=== PATIENT | female | born 1970 | race Caucasian/White ===

== ENCOUNTER 2021-02-07 07:24 | Day surgery (SDC) | payer BC, MEDICAID ==
--- NOTE | 2021-02-06 12:24 | PCM.PREANE ---
Preanesthetic Assessment - Procedure Proposed Procedure: EGD and Colonoscopy - Anesthesia/Transfusion/Family Hx Anesthesia History: Prior Anesthesia Reaction (PONV-scopalamine patch behind right ear at 0734) Family History of Anesthesia Reaction: No Transfusion History: No Prior Transfusion(s) Intubation History: Unknown - Review of Systems General: No Symptoms Pulmonary: No Symptoms (Snoring/), Shortness of Breath, Cough Cardiovascular: No Symptoms (epigastric pain,HTN, elevated lipids), Dyspnea on Exertion Gastrointestinal: No Symptoms (GERD, hiatal hernia), Difficulty Swallowing Neurological: No Symptoms (chronic lower back pain) Other: Reports: Liver Problems (history of fatty liver), Depression, Anxiety - Physical Assessment NPO Status Date: 02/06/21 NPO Status Time: 22:00 Vital Signs: HR:76 Sat: 93% Temp: 98.8 Resp: 20 B/P: 135/71 Height: 1.55 m Weight: 109 kg ASA Class: 3 Mental Status: Alert & Oriented x3 Airway Class: Mallampati = 3 Dentition: Reports: Normal Dentition, Caries Thyro-Mental Finger Breadths: 3 Mouth Opening Finger Breadths: 3 ROM/Head Extension: Full Lungs: Clear to Auscultation, Normal Respiratory Effort Cardiovascular: Regular Rate, Regular Rhythm, No Murmurs - Lab Values: All labs reviewed and noted and within acceptable ranges to proceed with scheduled procedure. - Imaging/EKG Impressions: Echocardiogram: EF: 60-65%(history of tricuspid/mitral valve regurgitation 1997) EKG: SR rate=77, borderline T wave abnormalities, anterior leads - Allergies Allergies/Adverse Reactions: Allergies Allergy/AdvReac Type Severity Reaction Status Date / Time No Known Allergies Allergy Verified 02/06/21 14:24 - Anesthesia Plan Pre-Op Medication Ordered: Beta Manuela Beta Manuela: Metoprolol Med Last Dose Date: 02/07/21 Med Last Dose Time: 21:00 - Acknowledgements Anesthesia Type Planned: MAC Pt an Appropriate Candidate for the Planned Anesthesia: Yes Alternatives and Risks of Anesthesia Discussed w Pt/Guardian: Yes Pt/Guardian Understands and Agrees with Anesthesia Plan: Yes PreAnesthesia Questionnaire Cardiovascular History: Reports: Hypertension Respiratory History: Reports: Asthma Gastrointestinal History: Reports: Hiatal Hernia, Other (See Below) Other Gastrointestinal History: fatty liver Genitourinary History: Reports: Renal Calculus Musculoskeletal History: Reports: Other (See Below) Other Musculoskeletal History: left foot surgery- pins Other Dermatologic History: excema - Past Surgical History Musculoskeletal Surgical History: Reports: Shoulder Surgery, Other (See Below) Other Musculoskeletal Surgeries/Procedures:: degenerative arthritis - HOME MEDS Home Medications: Home Meds Albuterol Sulfate [Albuterol Sulfate HFA] 2 puff INH Q4H PRN 12/01/14 [History] DULoxetine [Cymbalta] 120 mg PO DAILY 07/07/18 [History] Albuterol Sulfate [Albuterol Sulfate HFA] 1 dose INH Q4H PRN 02/06/21 [History] Celecoxib 200 mg PO DAILY 02/06/21 [History] Fluocinonide [Lidex 0.05% Gel] 1 dose TOP ASDIRECTED PRN 02/06/21 [History] LORazepam [Ativan] 1 mg PO BEDTIME 02/06/21 [History] Mometasone/Formoterol [Dulera 200-5 MCG] 2 puff INH BID 02/06/21 [History] Phentermine HCl 37.5 mg PO DAILY 02/06/21 [History] Potassium Chloride 20 meq PO DAILY 02/06/21 [History] Rosuvastatin Calcium 20 mg PO DAILY 02/06/21 [History] buPROPion HCL [Wellbutrin Xl] 150 mg PO DAILY 02/06/21 [History] - CURRENT (IN HOUSE) MEDS Current Meds: Current Medications Lactated Ringer's (Ringers, Lactated) 1,000 mls @ 125 mls/hr IV ASDIRECTED ROSA Stop: 02/07/21 23:00 Lidocaine/Sodium Bicarbonate (Lidocaine 1%/Sod Bicarbonate In Ns 8.4% 1 Ml Syringe) 0.25 ml IDERM ONETIME PRN PRN Reason: Prior to IV Start Stop: 02/07/21 18:00 Sodium Chloride (Sodium Chloride 0.9% 10 Ml Syringe) 10 ml FLUSH ASDIRECTED PRN PRN Reason: Keep Vein Open Stop: 02/07/21 18:00 Discontinued Medications Lactated Ringer's (Ringers, Lactated) 1,000 mls @ 125 mls/hr IV ASDIRECTED ROSA Stop: 12/20/20 23:00 Lactated Ringer's (Ringers, Lactated) 1,000 mls @ 125 mls/hr IV ASDIRECTED ROSA Stop: 01/03/21 23:00 Lidocaine/Sodium Bicarbonate (Lidocaine 1%/Sod Bicarbonate In Ns 8.4% 1 Ml Syringe) 0.25 ml IDERM ONETIME PRN PRN Reason: Prior to IV Start Stop: 12/20/20 18:00 Lidocaine/Sodium Bicarbonate (Lidocaine 1%/Sod Bicarbonate In Ns 8.4% 1 Ml Syringe) 0.25 ml IDERM ONETIME PRN PRN Reason: Prior to IV Start Stop: 01/03/21 18:00 Sodium Chloride (Sodium Chloride 0.9% 10 Ml Syringe) 10 ml FLUSH ASDIRECTED PRN PRN Reason: Keep Vein Open Stop: 12/20/20 18:00 Sodium Chloride (Sodium Chloride 0.9% 10 Ml Syringe) 10 ml FLUSH ASDIRECTED PRN PRN Reason: Keep Vein Open Stop: 01/03/21 18:00
[~2021-02-07 07:24] MED LIST: Albuterol 0.083% 2.5 MG/3 ML Neb Soln NEB PRN; Lactated Ringers 1,000 ML IV SCH; Lidocaine 1%/Sod Bicarbonate in NS 8.4% 1 ML Syringe IDERM PRN; Scopolamine 1.5 MG Transdermal Patch TRDERM PRN; Sodium Chloride 0.9% 10 ML Syringe FLUSH PRN
[2021-02-07] MEDS ORDERED: Lactated Ringers 1,000 ML ONE (08:39)
[2021-02-07] MEDS ORDERED: Propofol 200 MG/20 ML SDV ONE ×2 (08:39→08:53)
[2021-02-07] MEDS ORDERED: Lidocaine 1% 4 ML ONE (08:39)
[2021-02-07] MEDS ORDERED: fentaNYL 100 MCG/2 ML SDV ONE (08:39)
--- NOTE | 2021-02-07 09:19 | PCM48HPAN ---
Post Anesthesia Note - EVALUATION WITHIN 48HRS OF ANESTHETIC Vital Signs in Normal Range: Yes Patient Participated in Evaluation: Yes Respiratory Function Stable: Yes Airway Patent: Yes Cardiovascular Function Stable: Yes Hydration Status Stable: Yes Pain Control Satisfactory: Yes Nausea and Vomiting Control Satisfactory: Yes Mental Status Recovered: Yes Vital Signs: Last Vital Signs Temp 98.6 02/07/21 0915 Pulse 84 02/07/21 0915 Resp 12 02/07/21 0915 BP 96/62 02/07/21 0915 Pulse Ox 93% 02/07/21 0915
--- NOTE | 2021-02-07 09:21 | PCM.OPNOTE ---
- General Post-Op/Procedure Note Date of Surgery/Procedure: 02/07/21 Operative Procedure(s): EGD and colonoscopy Findings: 1. Irregular GE junction 2. Hiatal hernia 6m 3. Gastritis 4. Duodenitis 5. Duodenal diverticulum 6. Ascending colon polyp 7. Transverse colon polyp Pre Op Diagnosis: Epigastric pain, need for colon cancer screening Post-Op Diagnosis: same Anesthesia Technique: MAC Primary Surgeon: Preeti Liu Anesthesia Provider: Chitra Mae Pathology: 1. Duodenal biopsy 2. Antrum biopsy 3. GE junction biopsy 4. Ascending colon polyp 5. Transverse colon polyp Fluid Replacement, Intraop: 1,300 EBL in mLs: 0 Complications: none apparent Condition: Good
--- NOTE | 2021-02-07 09:29 | PCM.PRNOTE ---
- Free Text/Narrative Note: Operative Report Date of Procedure: February 07, 2021 Pre Op Diagnosis: Epigastric pain, need for colorectal cancer screening Post-Op Diagnosis: same Operative Procedures: 1. EGD with biopsy 2. Colonoscopy to the cecum Primary Surgeon: Preeti Liu MD Anesthesia Provider: Chitra Mae CRNA Anesthesia Technique: MAC IV Fluid Replacement, Intraop: 1300cc crystalloid Output, Urine Amount: 0cc EBL in mLs: 0cc Findings: 1. Irregular GE junction 2. Hiatal hernia 6m 3. Gastritis 4. Duodenitis 5. Duodenal diverticulum 6. Ascending colon polyp 7. Transverse colon polyp Specimens: 1. Duodenal biopsy 2. Antrum biopsy 3. GE junction biopsy 4. Ascending colon polyp 5. Transverse colon polyp Drain/Tubes: None Indication: The patient is an 50-year-old lady who presented to the clinic for endoscopy evaluation. The patient reported symptoms of epigastric pain with need for colorectal cancer. The patient was consented for a diagnostic EGD and colonoscopy. Risks of bleeding, and perforation were discussed, and the patient agreed to the risks and wished to proceed. Description of the procedure: The patient was taken back to the endoscopy suite, and placed in the left lateral decubitus position. A bite block was placed. The patient was sedated with MAC anesthesia. The Olympus video endoscope was inserted into the oropharynx and guided under direct vision into the esophagus, stomach, and duodenum. The duodenal bulb and first portion of the duodenum were remarkable for polyposis consistent with peptic duodenitis and additional findings of duodenitis. Biopsies were taken with a cold biopsy forceps. There was a 1.8-2cm duodenal diverticulum noted distal to the sphincter of oddi. The gastric antrum was inspected and cold biopsy forceps were used to take tissue samples for H. pylori. There was linear erythema and friability noted in this area consistent with gastritis. The scope was withdrawn to the stomach. the patient had a large hiatal hernia containing about 1/2 of the stomach volume. It was measured at 6cm in size. .The scope was withdrawn to the esophagus. The z-line was irregular and biopsied in four quadrants with a cold biopsy forceps. The endoscope was then withdrawn Next, anorectal examination was performed. No lesions, masses or hemorrhoids were noted externally or on palpation. The scope was placed into the rectum and advanced to cecum. Upon reaching the cecum, and the patients cecum was entered. There was minimal tortuosity of the colon. The ileocecal valve was well visualized and the appendiceal orifice identified. At this point, the scope was slowly withdrawn, paying attention to the mucosa. The patient had good bowel prep, 90-95% of the mucosa was visible. A sessile 5mm polyp was noted in the ascending colon and removed with a jumbo cold biopsy forceps. A 4mm semi- pedunculated polyp was seen in the transverse colon and removed with a jumbo cold biopsy forceps. In the rectum, scope was retroflexed and some hemorrhoidal tissue was noted. The scope was placed back in the lumen and excess air was aspirated. The scope was removed. The patient tolerated the procedure very well. Complications: None apparent Condition: The patient was transported to PACU in stable condition. Preeti Liu MD General Surgery
[2021-02-07 10:09] VITALS: BP 100/70; PULSE 76
== END 2021-02-07 10:05 | disposition home or self-care (01) ==
LOC: JD.SDS 07:24
PROVIDERS: ATTEND Surgery
DX: Z12.11 Encounter for screening for malignant neoplasm of colon (principal); K22.8 Other specified diseases of esophagus; D12.2 Benign neoplasm of ascending colon; K31.89 Other diseases of stomach and duodenum; I78.1 Nevus, non-neoplastic; K20.90 Esophagitis, unspecified without bleeding; K29.90 Gastroduodenitis, unspecified, without bleeding; K44.9 Diaphragmatic hernia without obstruction or gangrene; K57.10 Diverticulosis of small intestine without perforation or abscess without bleeding; K64.9 Unspecified hemorrhoids; E78.5 Hyperlipidemia, unspecified; I10 Essential (primary) hypertension; Z90.49 Acquired absence of other specified parts of digestive tract; Z98.890 Other specified postprocedural states; Z79.899 Other long term (current) drug therapy; Z91.048 Other nonmedicinal substance allergy status
CPT/HCPCS: 43239; 45380; A9270; J2704; J3010; J7120; 00813

== ENCOUNTER 2021-04-04 19:57 | Emergency (ER) | payer MEDICAID ==
[2021-04-04] MEDS ORDERED: HYDROmorphone 0.5 MG/0.5 ML Syringe IVPUSH ONE ×2 (20:50→22:28)
[2021-04-04] MEDS ORDERED: Ondansetron 4 MG/2 ML SDV IVPUSH ONE (20:50)
--- NOTE | 2021-04-04 20:54 | EDM.PDOC ---
ED HPI GENERAL MEDICAL PROBLEM - General Chief Complaint: Flank Pain Stated Complaint: SANGEETHA SENT HER Time Seen by Provider: 04/04/21 20:15 Source of Information: Reports: Patient, RN Notes Reviewed History Limitations: Reports: No Limitations - History of Present Illness INITIAL COMMENTS - FREE TEXT/NARRATIVE: Patient is a 50-year-old female presents to the ER for left-sided flank pain. This has been present since Friday, she complains of pain into her left lower quadrant/left flank. States this is sharp and stabbing in nature, and nothing seems to really make it better or worse. She is not taking any sort of pain medication for this pain. Patient states she is getting nauseous, and has had some hot flashes but no discernible fevers or chills, cough or shortness of breath, or any sort of vomiting or diarrhea. Patient notes that she was feeling well up until Friday. She was evaluated at the walk-in clinic for this, and was found to have a white blood cell count of 13.9 with 74% neutrophils on the auto differential, and her urinalysis demonstrated 6-10 white blood cells per high-power field, trace of red cells, few bacteria in her urine and a trace of leukocyte Estrace positive. Patient states that she has had an appendectomy, but has had no other abdominal surgeries. She had a recent colonoscopy and states she has follow-up for some abnormality discovered however she does not remember if they told her she had any sort of diverticulosis pattern in her colonoscopy. She has had a regular bowel movement this morning. Patient also notes that she has a history of kidney stones in her right kidney, but was not aware if she had any in her left kidney. Left Flank Pain Score (Numeric/FACES): 10 - Related Data Allergies Allergy/AdvReac Type Severity Reaction Status Date / Time No Known Allergies Allergy Verified 04/04/21 20:09 Home Meds: Home Meds DULoxetine [Cymbalta] 120 mg PO DAILY 07/07/18 [History] Albuterol Sulfate [Albuterol Sulfate HFA] 1 dose INH Q4H PRN 02/06/21 [History] Celecoxib 200 mg PO DAILY 02/06/21 [History] Fluocinonide [Lidex 0.05% Gel] 1 dose TOP ASDIRECTED PRN 02/06/21 [History] LORazepam [Ativan] 1 mg PO BEDTIME 02/06/21 [History] Mometasone/Formoterol [Dulera 200-5 MCG] 2 puff INH BID 02/06/21 [History] Potassium Chloride 20 meq PO DAILY 02/06/21 [History] Rosuvastatin Calcium 20 mg PO DAILY 02/06/21 [History] buPROPion HCL [Wellbutrin Xl] 150 mg PO DAILY 02/06/21 [History] Albuterol [Proventil Neb Soln] 1 inh INH DAILY PRN 04/04/21 [History] Cefdinir [Omnicef] 300 mg PO BID 5 Days #10 cap 04/04/21 [Rx] Hydrocodone/Acetaminophen [HYDROcodone-Acetaminophen 5-325 MG] 1 each PO Q6H PRN #12 tablet 04/04/21 [Rx] Omeprazole 20 mg PO DAILY 04/04/21 [History] Past Medical History HEENT History: Reports: None Cardiovascular History: Reports: Hypertension Other Cardiovascular History: mitral and tricuspid valve regurgitiation Respiratory History: Reports: Asthma Other Respiratory History: snoring Gastrointestinal History: Reports: Hiatal Hernia, Other (See Below) Other Gastrointestinal History: fatty liver Genitourinary History: Reports: Renal Calculus 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: Musculoskeletal History: Reports: Other (See Below) Other Musculoskeletal History: left foot surgery- pins Neurological History: Reports: None Psychiatric History: Reports: None Endocrine/Metabolic History: Reports: Obesity/BMI 30+ Hematologic History: Reports: None Immunologic History: Reports: None Oncologic (Cancer) History: Reports: None Dermatologic History: Reports: Eczema Other Dermatologic History: excema - Infectious Disease History Infectious Disease History: Reports: None - Past Surgical History GI Surgical History: Reports: Appendectomy, Colonoscopy, Hernia, Abdominal Musculoskeletal Surgical History: Reports: Shoulder Surgery, Other (See Below) Other Musculoskeletal Surgeries/Procedures:: degenerative arthritis Social & Family History - Tobacco Use Tobacco Use Status *Q: Never Tobacco User - Caffeine Use Caffeine Use: Reports: None - Recreational Drug Use Recreational Drug Use: No ED ROS GENERAL - Review of Systems Review Of Systems: Comprehensive ROS is negative, except as noted in HPI. ED EXAM, RENAL/ - Physical Exam Exam: See Below Exam Limited By: No Limitations General Appearance: Alert, WD/WN, No Apparent Distress Respiratory/Chest: No Respiratory Distress, Lungs Clear, Normal Breath Sounds, No Accessory Muscle Use, Chest Non-Tender Cardiovascular: Normal Peripheral Pulses, Regular Rate, Rhythm, No Edema GI/Abdominal: Normal Bowel Sounds, Soft, No Distention, No Mass, Tender (left side flank discomfort) (Female) Exam: Deferred Neurological: Alert, Oriented, Normal Cognition, No Motor/Sensory Deficits Psychiatric: Normal Affect, Normal Mood Skin Exam: Warm, Dry, Intact, Normal Color, No Rash Course - Vital Signs Last Recorded V/S: Last Vital Signs Temp 96.8 F L 04/04/21 20:03 Pulse 108 H 04/04/21 20:03 Resp 18 04/04/21 20:03 BP 134/83 04/04/21 20:03 Pulse Ox 94 L 04/04/21 20:03 - Orders/Labs/Meds Orders: Active Orders 24 hr Category Date Time Status Acetaminophen/HYDROcodone [Hodge 325-5 MG] Med 04/04/21 22:28 Once 2 tab PO ONETIME ONE HYDROmorphone [Dilaudid] Med 04/04/21 22:28 Once 0.5 mg IVPUSH ONETIME ONE Labs: Laboratory Tests 04/04/21 Range/Units 20:10 Sodium 140 (136-145) mEq/L Potassium 3.7 (3.5-5.1) mEq/L Chloride 99 (98-107) mEq/L Carbon Dioxide 28 (21-32) mEq/L Anion Gap 16.7 H (5-15) BUN 16 (7-18) mg/dL Creatinine 1.0 (0.55-1.02) mg/dL Est Cr Clr Drug Dosing 47.81 mL/min Estimated GFR (MDRD) 58 (>60) mL/min BUN/Creatinine Ratio 16.0 (14-18) Glucose 103 H (70-99) mg/dL Calcium 9.7 (8.5-10.1) mg/dL Total Bilirubin 0.3 (0.2-1.0) mg/dL AST 21 (15-37) U/L ALT 32 (14-59) U/L Alkaline Phosphatase 105 (46-116) U/L C-Reactive Protein 1.1 H* (<1.0) mg/dL Total Protein 8.4 H (6.4-8.2) g/dl Albumin 3.9 (3.4-5.0) g/dl Globulin 4.5 gm/dL Albumin/Globulin Ratio 0.9 L (1-2) Meds: Medications Discontinued Medications Generic Name Dose Route Start Last Admin Trade Name Freq PRN Reason Stop Dose Admin Hydromorphone HCl 0.5 mg 04/04/21 20:50 04/04/21 20:58 Hydromorphone 0.5 Mg/0.5 Ml Syringe IVPUSH 04/04/21 20:51 0.5 mg ONETIME ONE Administration Ketorolac Tromethamine 30 mg 04/04/21 21:47 04/04/21 21:53 Ketorolac 30 Mg/Ml Sdv IVPUSH 04/04/21 21:48 30 mg ONETIME ONE Administration Ondansetron HCl 4 mg 04/04/21 20:50 04/04/21 20:56 Ondansetron 4 Mg/2 Ml Sdv IVPUSH 04/04/21 20:51 4 mg ONETIME ONE Administration - Re-Assessments/Exams Free Text/Narrative Re-Assessment/Exam: 04/04/21 20:53 Patient presents to the ER for the evaluation of her left-sided flank pain. Due to the nature of her urinalysis, we will go ahead and get a CT without contrast for evaluation to evaluate for kidney stones versus other etiology. We will go ahead and give the patient 0.5 mg IV Dilaudid along with 4 mg Zofran Departure - Departure Time of Disposition: 22:29 Disposition: Home, Self-Care 01 Condition: Good Clinical Impression: Left-sided back pain Qualifiers: Back pain location: low back pain Chronicity: acute Sciatica presence: without sciatica Qualified Code(s): M54.5 - Low back pain UTI (urinary tract infection) Qualifiers: Urinary tract infection type: acute cystitis Hematuria presence: with hematuria Qualified Code(s): N30.01 - Acute cystitis with hematuria - Discharge Information *PRESCRIPTION DRUG MONITORING PROGRAM REVIEWED*: Yes *COPY OF PRESCRIPTION DRUG MONITORING REPORT IN PATIENT GIOVANI: No Prescriptions: Hydrocodone/Acetaminophen [HYDROcodone-Acetaminophen 5-325 MG] 1 each PO Q6H PRN #12 tablet PRN Reason: Pain Cefdinir [Omnicef] 300 mg PO BID 5 Days #10 cap Instructions: Acute Back Pain, Adult Referrals: Siomara Benitez PA-C [Primary Care Provider] - Forms: ED Department Discharge Additional Instructions: You were evaluated in the ER today for your left-sided back pain/flank pain. Laboratory evaluation from [facility] does demonstrate a possible UTI, and you have been started on cefdinir, 1 tablet 2 times a day for the next 5 days. A culture was sent for antibiotic stewardship, and to see what sort of bacteria is growing, so we can make sure we are picking the right antibiotics, you should be called by [facility] within the next 24 to 48 hours for ongoing management of this. Your back pain is not likely due to degenerative change within your vertebrae, as evidenced on your CT. Your CT demonstrated no other sign of etiology for your acute left-sided abdominal/flank pain. You have been given a prescription for medications, 1 again will be for antibiotics, the other one is for pain medication, you will need to tack picker at your pharmacy tomorrow and take as directed. These were electronically prescribed to the [facility] pharmacy located by [facility]. You will need to follow-up with your regular care provider for ongoing management of your pain. Do not hesitate to return to the ER at any time if symptoms change or worsen. Sepsis Event Note (ED) - Evaluation Sepsis Screening Result: No Definite Risk - Focused Exam Vital Signs: Vital Signs Temp Pulse Resp BP Pulse Ox 04/04/21 20:03 96.8 F L 108 H 18 134/83 94 L - My Orders Last 24 Hours: My Active Orders 04/04/21 22:28 Acetaminophen/HYDROcodone [Hodge 325-5 MG] 2 tab PO ONETIME ONE HYDROmorphone [Dilaudid] 0.5 mg IVPUSH ONETIME ONE - Assessment/Plan Last 24 Hours: My Active Orders 04/04/21 22:28 Acetaminophen/HYDROcodone [Hodge 325-5 MG] 2 tab PO ONETIME ONE HYDROmorphone [Dilaudid] 0.5 mg IVPUSH ONETIME ONE
--- NOTE | 2021-04-04 21:17 | CT ---
CT abdomen and pelvis Technique: Multiple axial sections were obtained from above the dome of the diaphragm inferiorly through the pubic symphysis. Intravenous and oral contrast were not utilized. Study has been performed as a ureteral stone protocol. Reconstructed coronal and sagittal images were obtained. Comparison: No prior abdominal imaging is available. Findings: Two nonobstructing calculi are seen within the lower right kidney. Largest nonobstructing stone measures approximately 6 mm. Left kidney shows no abnormal calcifications. No ureteral dilatation or ureteral stone is seen. No bladder calculi are seen. Visualized lung bases show nothing acute. Noncontrast appearance of the liver shows no focal abnormality. Gallbladder contains no calcified gallstones. Spleen appears normal in size. Adrenal glands show no nodule. Pancreas appears within normal limits. Abdominal aorta shows no aneurysm. No retroperitoneal adenopathy or mesenteric abnormalities are seen. Appendix is not visualized. No pelvic mass or adenopathy is appreciated. No bowel dilatation is seen. No inflammatory change is seen around the bowel. Small fat-containing bilateral femoral hernias are noted. Bone window settings were reviewed which show severe disc space narrowing at L3-4 with endplate sclerosis and vacuum phenomena. Anterior and posterior osteophytes are seen at the L3-4 level. Lesser disc space narrowing at L4-5 with vacuum disc phenomena. Mild degenerative change is seen within other portions of the spine. No acute osseous abnormality is appreciated. Impression: 1. Two small nonobstructing calculi within the right kidney. No ureteral dilatation or ureteral stone is seen. No inflammatory change is seen around either kidney. 2. Large hiatal hernia. 3. Small bilateral fat-containing femoral hernias. 4. Nothing acute is otherwise seen on noncontrast CT study of the abdomen and pelvis. Diagnostic code #2
[2021-04-04] MEDS ORDERED: Ketorolac 30 MG/ML SDV IVPUSH ONE (21:47)
[2021-04-04] MEDS ORDERED: Acetaminophen/HYDROcodone 325-5 MG Tab PO ONE (22:28)
[2021-04-04 23:22] VITALS: BP 124/71; PULSE 89
== END 2021-04-04 23:15 | disposition home or self-care (01) ==
LOC: JD.ED 19:57
DX: N30.01 Acute cystitis with hematuria (principal); I10 Essential (primary) hypertension; E66.9 Obesity, unspecified; Z68.42 Body mass index [BMI] 45.0-49.9, adult
CPT/HCPCS: 36415; 74176; 80053; 86140; 96374; 96375; 96376; 99284; A9270; J1170; J1885; J2405; 99283

== ENCOUNTER 2021-07-17 20:26 | Emergency (ER) | payer MEDICAID ==
--- NOTE | 2021-07-18 00:28 | EDM.PDOC ---
ED HPI GENERAL MEDICAL PROBLEM - General Chief Complaint: Syncope Stated Complaint: SYNCOPE/NAUSEA Time Seen by Provider: 07/17/21 23:14 Source of Information: Reports: Patient History Limitations: Reports: No Limitations - History of Present Illness INITIAL COMMENTS - FREE TEXT/NARRATIVE: Ms. Spear is a very pleasant 50-year-old woman who now presents the ED stating that she has not been feeling well for the past 2 weeks, worse over the last 2 days, including nausea without emesis, and lightheadedness with two episodes of near syncope - one this past , and another Friday morning, 07/16/2021. She reports that she has had a cough productive of clear sputum for the past 1 to 2 weeks. She also reports having a decreased appetite. She states that she has had slight dysuria since Friday. The patient states that she has not taken any [id number] or home remedies to address any of her symptoms since the onset. No prior medical evaluation. Here in the ED, the patient was initially found to be tachycardic at 113 bpm, otherwise, she was hemodynamically stable, afebrile, saturating 86% on room air, 90% on 2 L of oxygen per nasal cannula. The patient denies having a recent fever, chills, sore throat, ear pain, nasal or sinus congestion, dyspnea, chest pain, palpitations, nausea, vomiting, constipation, diarrhea, abdominal pain, recent weight gain or weight loss, recent bloody bowel movements or black bowel movements, recent joint aches, headaches, or rashes. The patient's PCP is BRUNO Davis. Her Sander Operator is Dr. Guillermo Mai. She has not received a COVID vaccination, nor an influenza vaccination this season. - Related Data Allergies Allergy/AdvReac Type Severity Reaction Status Date / Time No Known Allergies Allergy Verified 07/17/21 22:33 Home Meds: Home Meds DULoxetine [Cymbalta] 120 mg PO DAILY 07/07/18 [History] Albuterol Sulfate [Albuterol Sulfate HFA] 1 dose INH Q4H PRN 02/06/21 [History] Celecoxib 200 mg PO DAILY 02/06/21 [History] Fluocinonide [Lidex 0.05% Gel] 1 dose TOP ASDIRECTED PRN 02/06/21 [History] LORazepam [Ativan] 1 mg PO BEDTIME 02/06/21 [History] Mometasone/Formoterol [Dulera 200-5 MCG] 2 puff INH BID 02/06/21 [History] Potassium Chloride 20 meq PO DAILY 02/06/21 [History] Rosuvastatin Calcium 20 mg PO BEDTIME 02/06/21 [History] buPROPion HCL [Wellbutrin Xl] 150 mg PO DAILY 02/06/21 [History] Albuterol [Proventil Neb Soln] 1 inh INH DAILY PRN 04/04/21 [History] Cefdinir [Omnicef] 300 mg PO BID 5 Days #10 cap 04/04/21 [Rx] Hydrocodone/Acetaminophen [HYDROcodone-Acetaminophen 5-325 MG] 1 each PO Q6H PRN #12 tablet 04/04/21 [Rx] Omeprazole 20 mg PO DAILY 04/04/21 [History] dexAMETHasone [Dexamethasone] 6 mg PO QAM #30 tab 07/18/21 [Rx] Past Medical History Cardiovascular History: Reports: High Cholesterol, Hypertension Respiratory History: Reports: Asthma (suspected, not PFT-tested) Gastrointestinal History: Reports: GERD, Hiatal Hernia, Other (See Below) (Hepatic steatosis) Genitourinary History: Reports: Renal Calculus Musculoskeletal History: Reports: Osteoarthritis Psychiatric History: Reports: Anxiety, Depression Endocrine/Metabolic History: Reports: Obesity/BMI 30+ - Past Surgical History HEENT Surgical History: Reports: Oral Surgery (dental extractions) GI Surgical History: Reports: Appendectomy, Colonoscopy (x 1), EGD (x 1), Hernia, Abdominal (x 1) Female Surgical History: Reports: D&C (x 1) Musculoskeletal Surgical History: Reports: Shoulder Surgery (right, arthroscopic), Other (See Below) (Left foot pinning) Social & Family History - Tobacco Use Tobacco Use Status *Q: Never Tobacco User Second Hand Smoke Exposure: No - Caffeine Use Caffeine Use: Reports: None - Alcohol Use Alcohol Use History: No - Recreational Drug Use Recreational Drug Use: No - Living Situation & Occupation Living situation: Reports: , with Family (1 child) Occupation: Unemployed ED ROS GENERAL - Review of Systems Review Of Systems: Comprehensive ROS is negative, except as noted in HPI. ED EXAM, GENERAL - Physical Exam Exam: See Below Exam Limited By: No Limitations General Appearance: Alert, WD/WN, No Apparent Distress Eye Exam: Bilateral Eye: EOMI, Normal Inspection Ears: Normal External Exam, Hearing Grossly Normal Nose: Normal Inspection Throat/Mouth: Normal Inspection, Normal Lips, Normal Voice, No Airway Compromise Head: Atraumatic, Normocephalic Neck: Normal Inspection, Full Range of Motion Respiratory/Chest: No Respiratory Distress, Lungs Clear, Normal Breath Sounds, No Accessory Muscle Use. No: Decreased Breath Sounds, Crackles, Rhonchi, Wheezi ng, Stridor, Prolonged Expiration Cardiovascular: Normal Peripheral Pulses, Regular Rate, Rhythm, No Gallop, No JVD, No Murmur, No Rub Peripheral Pulses: 3+: Radial (L), Radial (R) GI/Abdominal: Normal Bowel Sounds, Soft, Non-Tender, No Organomegaly, No Distention, No Abnormal Bruit, No Mass Back Exam: Normal Inspection, Full Range of Motion, NT Extremities: Normal Inspection, Normal Range of Motion, No Pedal Edema, Normal Capillary Refill Neurological: Alert, Oriented, Normal Cognition, No Motor/Sensory Deficits Psychiatric: Normal Affect Skin Exam: Warm, Dry, Intact, Normal Color, No Rash #1 Interpretation EKG Date: 07/17/21 Time: 22:52 Rhythm: Other (Sinus tachycardia) Rate (Beats/Min): 110 [place]: Normal P-Wave: Present QRS: Other (Late transition) ST-T: Normal QT: Prolonged (QTc 603 ms) Comparison: Change From Previous EKG (QTc prolongation new since 06/09/2015) Course - Vital Signs Last Recorded V/S: Last Vital Signs Temp 37.3 C 07/17/21 22:29 Pulse 96 07/18/21 03:45 Resp 18 07/18/21 03:45 BP 122/76 07/18/21 03:45 Pulse Ox 84 L 07/18/21 03:45 Orthostatic Blood Pressure [ 140/111 Standing] Orthostatic Blood Pressure [ 102/70 Sitting] Orthostatic Blood Pressure [ 82/62 Supine] - Orders/Labs/Meds Orders: Active Orders 24 hr Category Date Time Status Orthostatic Vital Signs [RC] STAT Care 07/17/21 23:27 Active Vital Signs [RC] Q15M Care 07/18/21 01:57 Active Chest 1V Frontal [CR] Stat Exams 07/18/21 00:24 Taken POTASSIUM,K [CHEM] Stat Lab 07/18/21 05:50 Received EPINEPHrine [Adrenalin] Med 07/18/21 01:57 Active 0.3 mg IM ASDIRECTED PRN Famotidine [Pepcid] Med 07/18/21 01:57 Active 20 mg IVPUSH ASDIRECTED PRN Sodium Chloride 0.9% [Saline Flush] Med 07/18/21 02:00 Active 30 ml FLUSH ASDIRECTED diphenhydrAMINE [Benadryl] Med 07/18/21 01:57 Active 50 mg IVPUSH ASDIRECTED PRN methylPREDNISolone Sod Succ [Solu-MEDROL] Med 07/18/21 01:57 Active 125 mg IVPUSH ASDIRECTED PRN EKG 12 Lead [EK] Stat Ther 07/17/21 22:29 Ordered Medication Orders Diphenhydramine HCl (Diphenhydramine 50 Mg/Ml Sdv) 50 mg IVPUSH ASDIRECTED PRN PRN Reason: hypersensitivity reaction Epinephrine HCl (Epinephrine 1 Mg/Ml Sdv) 0.3 mg IM ASDIRECTED PRN PRN Reason: hypersensitivity reaction Famotidine (Famotidine 20 Mg/2 Ml Sdv) 20 mg IVPUSH ASDIRECTED PRN PRN Reason: hypersensitivity reaction Methylprednisolone Sodium Succinate (Methylprednisolone Sodium Succinate 125 Mg/2 Ml Sdv) 125 mg IVPUSH ASDIRECTED PRN PRN Reason: hypersensitivity reaction Sodium Chloride (Sodium Chloride 0.9% 10 Ml Syringe) 30 ml FLUSH ASDIRECTED ROSA Labs: Laboratory Tests 07/17/21 07/17/21 07/17/21 Range/Units 22:40 22:40 22:40 WBC 5.11 (3.98-10.04) K/mm3 RBC 5.06 (3.98-5.22) M/mm3 Hgb 14.2 D (11.2-15.7) gm/dl Hct 42.7 (34.1-44.9) % MCV 84.4 D (79.4-94.8) fl MCH 28.1 (25.6-32.2) pg MCHC 33.3 (32.2-35.5) g/dl RDW Std Deviation 48.8 H (36.4-46.3) fL Plt Count 306 D (182-369) K/mm3 MPV 10.2 (9.4-12.3) fl Neutrophils % (Manual) 76 H (40-60) % Band Neutrophils % 0 (0-10) % Lymphocytes % (Manual) 12 L (20-40) % Atypical Lymphs % 0 % Monocytes % (Manual) 12 H (2-10) % Eosinophils % (Manual) 0 L (0.7-5.8) % Basophils % (Manual) 0 L (0.1-1.2) Platelet Estimate Adequate Anisocytosis 1+ slight RBC Morph Comment Abnormal Sodium 133 L (136-145) mEq/L Potassium 2.5 L (3.5-5.1) mEq/L Chloride 94 L (98-107) mEq/L Carbon Dioxide 31 (21-32) mEq/L Anion Gap 10.5 (5-15) BUN 14 (7-18) mg/dL Creatinine 1.0 (0.55-1.02) mg/dL Est Cr Clr Drug Dosing 47.81 mL/min Estimated GFR (MDRD) 58 (>60) mL/min BUN/Creatinine Ratio 14.0 (14-18) Glucose 100 H (70-99) mg/dL Calcium 8.6 (8.5-10.1) mg/dL Magnesium 1.6 L (1.8-2.4) mg/dL Total Bilirubin 0.4 (0.2-1.0) mg/dL AST 28 (15-37) U/L ALT 36 (14-59) U/L Alkaline Phosphatase 81 (46-116) U/L C-Reactive Protein 4.4 H* (<1.0) mg/dL Total Protein 7.4 (6.4-8.2) g/dl Albumin 3.4 (3.4-5.0) g/dl Globulin 4.0 gm/dL Albumin/Globulin Ratio 0.9 L (1-2) SARS-CoV-2 RNA (LORE[place]) (NEGATIVE) 07/17/21 Range/Units 23:04 WBC (3.98-10.04) K/mm3 RBC (3.98-5.22) M/mm3 Hgb (11.2-15.7) gm/dl Hct (34.1-44.9) % MCV (79.4-94.8) fl MCH (25.6-32.2) pg MCHC (32.2-35.5) g/dl RDW Std Deviation (36.4-46.3) fL Plt Count (182-369) K/mm3 MPV (9.4-12.3) fl Neutrophils % (Manual) (40-60) % Band Neutrophils % (0-10) % Lymphocytes % (Manual) (20-40) % Atypical Lymphs % % Monocytes % (Manual) (2-10) % Eosinophils % (Manual) (0.7-5.8) % Basophils % (Manual) (0.1-1.2) Platelet Estimate Anisocytosis RBC Morph Comment Sodium (136-145) mEq/L Potassium (3.5-5.1) mEq/L Chloride (98-107) mEq/L Carbon Dioxide (21-32) mEq/L Anion Gap (5-15) BUN (7-18) mg/dL Creatinine (0.55-1.02) mg/dL Est Cr Clr Drug Dosing mL/min Estimated GFR (MDRD) (>60) mL/min BUN/Creatinine Ratio (14-18) Glucose (70-99) mg/dL Calcium (8.5-10.1) mg/dL Magnesium (1.8-2.4) mg/dL Total Bilirubin (0.2-1.0) mg/dL AST (15-37) U/L ALT (14-59) U/L Alkaline Phosphatase (46-116) U/L C-Reactive Protein (<1.0) mg/dL Total Protein (6.4-8.2) g/dl Albumin (3.4-5.0) g/dl Globulin gm/dL Albumin/Globulin Ratio (1-2) SARS-CoV-2 RNA (LORE[place]) Positive H (NEGATIVE) Meds: Medications Generic Name Dose Route Start Last Admin Trade Name Freq PRN Reason Stop Dose Admin Diphenhydramine HCl 50 mg 07/18/21 01:57 Diphenhydramine 50 Mg/Ml Sdv IVPUSH ASDIRECTED PRN hypersensitivity reaction Epinephrine HCl 0.3 mg 07/18/21 01:57 Epinephrine 1 Mg/Ml Sdv IM ASDIRECTED PRN hypersensitivity reaction Famotidine 20 mg 07/18/21 01:57 Famotidine 20 Mg/2 Ml Sdv IVPUSH ASDIRECTED PRN hypersensitivity reaction Methylprednisolone Sodium Succinate 125 mg 07/18/21 01:57 Methylprednisolone Sodium Succinate 125 Mg/2 Ml Sdv IVPUSH ASDIRECTED PRN hypersensitivity reaction Sodium Chloride 30 ml 07/18/21 02:00 Sodium Chloride 0.9% 10 Ml Syringe FLUSH ASDIRECTED ROSA Discontinued Medications Generic Name Dose Route Start Last Admin Trade Name Shannon PRN Reason Stop Dose Admin Dexamethasone 6 mg 07/18/21 05:07 07/18/21 05:19 Dexamethasone 4 Mg Tab PO 07/18/21 05:08 6 mg ONETIME STA Administration Magnesium Sulfate 2 gm/ Premix 50 mls @ 25 mls/hr 07/18/21 01:36 07/18/21 01:49 IV 07/18/21 03:35 25 mls/hr ONETIME ONE Administration CASIRIVIMAB/IMDEVIMAB 10 ml/ 110 mls @ 220 mls/hr 07/18/21 01:57 07/18/21 02:48 Sodium Chloride IV 07/18/21 02:26 220 mls/hr ONETIME ONE Administration Potassium Chloride 40 meq 07/18/21 01:36 07/18/21 01:49 Potassium Chloride 20 Meq Tab.Er PO 07/18/21 01:37 40 meq ONETIME ONE Administration Potassium Chloride 40 meq 07/18/21 03:25 07/18/21 04:09 Potassium Chloride 20 Meq Tab.Er PO 07/18/21 03:26 40 meq ONETIME ONE Administration Potassium Chloride 40 meq 07/18/21 05:06 07/18/21 05:19 Potassium Chloride 20 Meq Tab.Er PO 07/18/21 05:07 40 meq ONETIME ONE Administration - Re-Assessments/Exams Free Text/Narrative Re-Assessment/Exam: 07/18/21 00:25 An ECG and swab for the SARS-CoV-2 virus and influenza A + B viruses was obtained at triage. Her ECG shows no ischemic changes. Her swab for the SARS-CoV-2 virus is positive, while the swab for influenza is negative. I have ordered a further work-up that includes orthostatics, several blood tests, and a portable chest x-ray. 07/18/21 01:10 The patient is not orthostatic. Portable chest radiograph reviewed. The cardiac silhouette is within normal limits. No pulmonary vascular congestion. No pleural effusions seen on this AP view. No focal infiltrate. No pneumothorax. A hiatal hernia is noted. Formal read per the Radiologist pending. Her CBC is unremarkable. Her CMP is remarkable for slight hyponatremia of 133, and hypokalemia of 2.5, with remainder of her CMP being unremarkable. Her CRP is modestly elevated at 4.4. Based on the above, I have ordered a magnesium level. 07/18/21 01:36 The patient's magnesium level is mildly depressed at 1.6. Based on the above, I have ordered a 2 g Mg-rider and 40 mEq of oral KCl. 07/18/21 01:58 The patient's SpO2 was 90% on 2 L of oxygen at triage. In order to determine if the patient would be a candidate for monoclonal antibodies, I turned her oxygen off, and it has maintained itself at about 89 to 91% on room air. She therefore does not require supplemental oxygen. Based on her BMI, she is a candidate for an infusion of the monoclonal antibody Regen-Cov. We discussed that at length, including that it is an emergency use authorization medication intended to decrease the likelihood of patients diagnosed with COVID-19 from developing severe symptoms or , and that it does not treat her current symptoms. I explained that Regen-Cov is still under investigation, that it is not fully FDA approved, and that the potential benefits and risks of the medication are not fully known. The patient was notified that if she receives Regen-Cov, that it may decrease her immune response to a COVID vaccination, should she decide to get it after she recovers from her current illness. I explained that there is a possibility that she could have an allergic reaction either during or after the infusion, as well as brief pain, bleeding, bruising of the skin, soreness, swelling, and possible infection at the infusion site. Other side effects could occur. I discussed that there are other potential treatment options that are currently not FDA approved to treat COVID-19. The patient was notified that the infusion takes about half an hour, after which she would be expected to remain in the ED for another hour to observe for possible side effects. She was offered the "Patient and caregiver MELISSA Regen-Cov fact sheet" to read and review. All questions were answered. The patient expressed understanding, and would like to proceed with the infusion. 07/18/21 05:08 The patient's SPO2 has slowly dropped, now down to about 86% on room air. Her oxygen saturation is about 90 to 91% on 1 L of oxygen per nasal cannula. I have ordered dexamethasone. In the meantime, the patient is about to receive her third dose of KCl 40 mEq p.o. 07/18/21 06:49 A repeat K+ level is now 3.3. I will discharge her home with a prescription for dexamethasone 6 mg daily x 10 days, and we are making arrangements for her to receive home oxygen, 1 L per nasal cannula continuously. She will need to strictly isolate through 07/27/2021, at which time she should get rete yosephd. Departure - Departure Time of Disposition: 06:50 Disposition: Home, Self-Care 01 Condition: Fair Clinical Impression: COVID-19, Hypokalemia, Hypomagnesemia, Hypoxemia - Discharge Information *PRESCRIPTION DRUG MONITORING PROGRAM REVIEWED*: Not Applicable *COPY OF PRESCRIPTION DRUG MONITORING REPORT IN PATIENT GIOVANI: Not Applicable Referrals: Siomara Benitez PA-C [Primary Care Provider] - Guillermo Mai MD [Ordering Only Provider] - Forms: ED Department Discharge Additional Instructions: You were seen in the emergency room for 2 weeks of not feeling well, worse over the past 2 days, including nausea and lightheadedness with nearly passing out, a cough, and decreased appetite. Work-up in the ER included positional blood pressure checks, numerous blood tests, a swab for the SARS-CoV-2 virus and influenza A + B viruses, a chest x- ray, and an ECG. Your magnesium level was found to be mildly depressed at 1.6. You were given IV magnesium replacement in the ER. Your potassium level was found to be significantly depressed at 2.5. You were given oral potassium replacement in the ER. Your swab for the SARS-CoV-2 virus returned positive, indicating you have COVID- 19. You were treated with an infusion of the monoclonal antibodies Regen-Cov (Regeneron), and started on the steroid dexamethasone. A prescription for dexamethasone has been sent to the [facility] pharmacy, located just south and across the [address] from [facility]. Take 3 tablets (6 mg) of dexamethasone every morning, starting tomorrow morning, , 07/19/2021, as prescribed. Your oxygen level dropped over the course of your ER visit. Arrangements have been made for you to receive supplemental oxygen at home. We recommend that you purchase a home pulse oximeter, and check your oxygen level several times a day. Initially, you will be receiving a 1 L of oxygen per nasal cannula continuously. Adjust your oxygen level so that your oxygen saturation is 92 to 94%, on average. If your oxygen level drops such that you need more than 4 L of oxygen per nasal cannula in order to maintain an oxygen saturation of 92 to 94%, please return to the ER for reevaluation. As discussed, it is imperative that you strictly isolate for 10 days = 07/27/2021, at which time you should get retested. If you are still positive, you need to remain isolated until you test negative. Sepsis Event Note (ED) - Evaluation Sepsis Screening Result: No Definite Risk - Focused Exam Vital Signs: Vital Signs Temp Pulse Resp BP Pulse Ox 07/18/21 03:45 96 18 122/76 84 L 07/18/21 03:30 100 20 107/62 88 L 07/18/21 03:15 100 15 119/69 87 L 07/18/21 03:00 100 18 120/61 87 L 07/18/21 02:45 97 13 118/70 90 L 07/17/21 22:29 37.3 C 113 H 18 105/64 90 L - My Orders Last 24 Hours: My Active Orders 07/17/21 22:29 EKG 12 Lead [EK] Stat 07/17/21 23:27 Orthostatic Vital Signs [RC] STAT 07/18/21 00:24 Chest 1V Frontal [CR] Stat 07/18/21 01:57 Vital Signs [RC] Q15M EPINEPHrine [Adrenalin] 0.3 mg IM ASDIRECTED PRN Famotidine [Pepcid] 20 mg IVPUSH ASDIRECTED PRN diphenhydrAMINE [Benadryl] 50 mg IVPUSH ASDIRECTED PRN methylPREDNISolone Sod Succ [Solu-MEDROL] 125 mg IVPUSH ASDIRECTED PRN 07/18/21 02:00 Sodium Chloride 0.9% [Saline Flush] 30 ml FLUSH ASDIRECTED 07/18/21 05:50 POTASSIUM,K [CHEM] Stat - Assessment/Plan Last 24 Hours: My Active Orders 07/17/21 22:29 EKG 12 Lead [EK] Stat 07/17/21 23:27 Orthostatic Vital Signs [RC] STAT 07/18/21 00:24 Chest 1V Frontal [CR] Stat 07/18/21 01:57 Vital Signs [RC] Q15M EPINEPHrine [Adrenalin] 0.3 mg IM ASDIRECTED PRN Famotidine [Pepcid] 20 mg IVPUSH ASDIRECTED PRN diphenhydrAMINE [Benadryl] 50 mg IVPUSH ASDIRECTED PRN methylPREDNISolone Sod Succ [Solu-MEDROL] 125 mg IVPUSH ASDIRECTED PRN 07/18/21 02:00 Sodium Chloride 0.9% [Saline Flush] 30 ml FLUSH ASDIRECTED 07/18/21 05:50 POTASSIUM,K [CHEM] Stat
[2021-07-18] MEDS ORDERED: Magnesium Sulfate/Water 2 GM in Premix Bag 1 BAG IV ONE (01:36)
[2021-07-18] MEDS ORDERED: Potassium Chloride 20 MEQ Tab.ER PO ONE ×3 (01:36→05:06)
[2021-07-18] MEDS ORDERED: EPINEPHrine 1 MG/ML SDV IM PRN (01:57)
[2021-07-18] MEDS ORDERED: methylPREDNISolone Sodium Succinate 125 MG/2 ML SDV IVPUSH PRN (01:57)
[2021-07-18] MEDS ORDERED: diphenhydrAMINE 50 MG/ML SDV IVPUSH PRN (01:57)
[2021-07-18] MEDS ORDERED: Famotidine 20 MG/2 ML SDV IVPUSH PRN (01:57)
[2021-07-18] MEDS ORDERED: Sodium Chloride 0.9% 10 ML Syringe FLUSH SCH (02:00)
[2021-07-18] MEDS ORDERED: Dexamethasone 4 MG Tab PO STA ×2 (03:49→05:07)
[2021-07-18 03:59] VITALS: BP 122/76; PULSE 96
--- NOTE | 2021-07-18 07:25 | CR ---
Chest: Frontal view of the chest was obtained. Comparison: Prior chest x-ray of 06/09/15. Heart size is at the upper limits of normal. Upper mediastinum is within normal limits. Possible minimal atelectasis within the right costophrenic angle is noted. Lungs otherwise are clear. Slight deformity is seen within the left fifth rib suspicious for healing fracture. No additional bony abnormality is seen. Impression: 1. Findings suspicious for mild atelectasis within the right cardiophrenic angle. 2. Possible healing rib fracture within the left fifth rib. 3. Heart size is at the upper limits of normal. 4. Nothing acute is otherwise seen. Diagnostic code #2
== END 2021-07-18 09:30 | disposition home or self-care (01) ==
LOC: JD.ED 20:26
DX: U07.1 COVID-19 (principal); R09.02 Hypoxemia; E83.42 Hypomagnesemia; E87.6 Hypokalemia; E78.00 Pure hypercholesterolemia, unspecified; I10 Essential (primary) hypertension; K21.9 Gastro-esophageal reflux disease without esophagitis; E66.9 Obesity, unspecified; M19.90 Unspecified osteoarthritis, unspecified site; Z68.41 Body mass index [BMI] 40.0-44.9, adult; Z79.899 Other long term (current) drug therapy
CPT/HCPCS: 36415; 71045; 71045-26; 80053; 83735; 84132; 85007; 85027; 86140; 87804; 93005; 93010; 96365; 96366; 99284; 99284-25; A9270-GY; J3475; J8540; M0243; Q0243; U0002

== ENCOUNTER 2022-10-17 17:48 | Emergency (ER) | payer MEDICAID ==
[2022-10-17 18:01] VITALS: PULSE 81
[2022-10-17] MEDS ORDERED: Ketorolac 60 MG/2 ML SDV IM ONE (18:44)
[2022-10-17 19:15] VITALS: BP 130/71
== END 2022-10-17 19:15 | disposition hospice, inpatient (51) ==
LOC: JD.ED 17:48
DX: S49.92XA Unspecified injury of left shoulder and upper arm, initial encounter (principal); E78.00 Pure hypercholesterolemia, unspecified; I10 Essential (primary) hypertension; J45.909 Unspecified asthma, uncomplicated; K21.9 Gastro-esophageal reflux disease without esophagitis; E66.9 Obesity, unspecified; Z68.35 Body mass index [BMI] 35.0-35.9, adult; Z79.899 Other long term (current) drug therapy; Z98.890 Other specified postprocedural states; W00.0XXA Fall on same level due to ice and snow, initial encounter
CPT/HCPCS: 73030; 99283; J1885

== ENCOUNTER 2024-06-13 19:50 | Emergency (ER) | payer BC, MEDICAID ==
[2024-06-13 21:17] LABS: BASOPHILS PERCENT AUTO 0.2 % (0.0-1.0); EOSINOPHILS PERCENT AUTO 0.3 % (0.0-6.0); HEMATOCRIT 34.2 % (37.0-47.0); IMMATURE GRAN ABSOLUTE AUTO 0.06 K/mm3 (0.00-0.05); IMMATURE GRAN PERCENT AUTO 0.5 % (0.0-0.4); LYMPHOCYTES ABSOLUTE AUTO 0.6 K/mm3 (1.0-4.8); LYMPHOCYTES PERCENT AUTO 5.2 % (24.0-44.0); MEAN CORPUSCULAR HGB CONC 35.1 g/dl (32.0-36.0); MEAN CORPUSCULAR VOLUME 85.5 fl (83.0-99.0); MEAN PLATELET VOLUME 9.7 fl (9.4-12.3); MONOCYTES ABSOLUTE AUTO 0.9 K/mm3 (0.0-0.8); MONOCYTES PERCENT AUTO 7.5 % (0.0-8.0); NEUTROPHILS ABSOLUTE AUTO 9.8 K/mm3 (1.8-7.7); NEUTROPHILS PERCENT AUTO 86.3 % (41.0-71.0); PLATELET COUNT,PLT 155 K/mm3 (150-400); WHITE BLOOD CELL COUNT,WBC 11.33 K/mm3 (3.9-11.3)
[2024-06-13] MEDS: Sodium Chloride 0.9% 10 ML Syringe FLUSH PRN (21:20)
[2024-06-13] MEDS: Sodium Chloride 0.9% 1,000 ML IV STA (21:20)
[2024-06-13] MEDS: Iopamidol 612 MG/ML 100 ML Bottle IVPUSH ONE (21:36)
[2024-06-13] MEDS: Sodium Chloride 0.9% 10 ML Syringe FLUSH ONE (21:36)
[2024-06-13 21:37] LABS: A/G RATIO 0.6 (1-2); ALANINE AMINOTRANSFERASE,ALT 53 U/L (14-59); ALBUMIN 2.3 g/dl (3.4-5.0); ALKALINE PHOSPHATASE 89 U/L (46-116); ASPARTATE AMNIOTRANSFERASE,AST 37 U/L (15-37); BILIRUBIN TOTAL 0.7 mg/dL (0.2-1.0); BLOOD UREA NITROGEN,BUN 27 mg/dL (7-18); BUN/CREATININE RATIO 22.5 (14-18); CALCIUM 8.5 mg/dL (8.5-10.1); CARBON DIOXIDE,CO2 20 mEq/L (21-32); CHLORIDE,CL 95 mEq/L (98-107); CREATININE 1.2 mg/dL (0.55-1.02); ESTIMATED GFR 54 mL/min (>60); GLUCOSE RANDOM 113 mg/dL (70-99); PROTEIN TOTAL,TP 6.2 g/dl (6.4-8.2); SODIUM,NA 129 mEq/L (136-145)
[2024-06-13 21:46] LABS: C-REACTIVE PROTEIN > 25.00 mg/dL (<0.30)
[2024-06-13] MEDS ORDERED: Potassium Chloride 10 MEQ in Premix Bag 1 BAG IV SCH (22:00)
[2024-06-13 22:12] LABS: LACTIC ACID 0.5 mmol/L (0.4-2.0)
[2024-06-13 22:13] LABS: APPEARANCE,URINE SLT CLOUDY (Clear); BILIRUBIN,URINE NEGATIVE (Negative); COLOR,URINE LIGHT YELLOW (Yellow); GLUCOSE,URINE NEGATIVE (Negative); KETONES,URINE 1+ (Negative); LEUKOCYTE ESTERASE,URINE 2+ (Negative); NITRITE,URINE NEGATIVE (Negative); OCCULT BLOOD,URINE 2+ (Negative); PH,URINE 6.5 (5.0-8.0); PROTEIN,URINE 2+ (Negative); UROBILINOGEN,URINE 0.2 (0.2-1.0)
[2024-06-13] MEDS: Piperacillin/Tazobactam 4.5 GM in Sodium Chloride 0.9% 100 ML IV ONE (22:14)
[2024-06-13 22:23] LABS: BACTERIA,URINE MANY /hpf (FEW); MUCUS,URINE NOT SEEN /hpf (FEW); RBC,URINE 0-5 /hpf (0-5); SQUAMOUS EPITHELIAL CELLS,UR 0-5 /hpf (0-5); WBC,URINE 75-100 /hpf (0-5)
[2024-06-13] MEDS: NS with KCl 40mEq 1,000 ML IV SCH (22:50)
[2024-06-14 01:13] VITALS: BP 103/58; PULSE 71
== END 2024-06-14 01:00 ==
LOC: JD.ED 19:50
DX: N13.2 Hydronephrosis with renal and ureteral calculous obstruction (principal); N12 Tubulo-interstitial nephritis, not specified as acute or chronic; I10 Essential (primary) hypertension; E78.00 Pure hypercholesterolemia, unspecified; E66.9 Obesity, unspecified; Z79.899 Other long term (current) drug therapy; Z90.49 Acquired absence of other specified parts of digestive tract; Z68.32 Body mass index [BMI] 32.0-32.9, adult
CPT/HCPCS: 36415; 74177; 80053; 81001; 83605; 85025; 86140; 87040; 87086; 87154; 96361; 96365; 96366; 96367; 99285; J2543; J3480; J3490; J7030; Q9967; 87088; 87186